=== PATIENT | female | born 1970 | race Caucasian/White ===

== ENCOUNTER 2019-05-09 13:30 | Inpatient (IN) | payer MEDICAID ==
[~2019-05-09] VITALS: Ht 160 cm; Wt 63.5 kg
[2019-05-09 14:27] LABS: BASOPHILS % 0.5 % (0.0-2.0); HEMOGLOBIN. 13.8 g/dL (12.0-16.0); MEAN CORPUSCULAR HEMOGLOBIN 29.7 pg (28.0-32.0); MEAN CORPUSCULAR VOLUME 88.1 fL (81.0-99.0); MEAN PLATELET VOLUME 8.8 fl (7.4-10.4); MONOCYTES % 8.4 % (2.0-8.0); NEUTROPHILS % 67.1 % (40.0-76.0); PLATELET 246 x1000/uL (130-400); RED BLOOD CELL COUNT 4.65 mill/uL (4.2-5.4); RED CELL DISTRIBUTION WIDTH 13.5 % (11.6-14.6)
[2019-05-09 14:31] LABS: BG CARBOXYHEMOGLOBIN 0.4 % (0.5-1.5); BG DEOXYHEMOGLOBIN 4.8 % (0.0-5.0); BG FRACTION INSPIRED OXYGEN 21; BG HCO3 ACT 23.8 mmol/L (22.0-26.0); BG METHEMOGLOBIN 0.1 % (0.0-1.5); BG OXYGEN SATURATION 95.2 % (92.0-98.5); BG OXYHEMOGLOBIN 94.7 % (94.0-97.0); BG PCO2 36.5 mmHg (35.0-45.0); BG PH 7.433 (7.350-7.450); BG SAMPLE SITE RIGHT BRACHIAL; BG VENT MODE ROOM AIR
[2019-05-09 14:34] LABS: CHLORIDE 107 mEq/L (98-107)
[2019-05-09 14:35] LABS: HCG SCREEN NEGATIVE
[2019-05-09 14:38] LABS: ETHANOL BLOOD < 10 mg/dL
[2019-05-09 15:25] LABS: CLARITY URINE CLEAR (CLEAR); COLOR URINE YELLOW (YELLOW); KETONES URINE NEGATIVE (NEGATIVE); LEUKOCYTE ESTERASE URINE TRACE (NEGATIVE); NITRITE URINE NEGATIVE (NEGATIVE); OCCULT BLOOD URINE NEGATIVE (NEGATIVE); PH URINE 8.5 (4.5-8.0); PROTEIN URINE NEGATIVE (NEGATIVE); SPECIFIC GRAVITY URINE 1.006 (1.005-1.030); UROBILINOGEN URINE 0.2 E.U./dL (0.2-1.0)
[2019-05-09 15:42] LABS: *AMPHETAMINES SCREEN URINE NEGATIVE (NEGATIVE); *BARBITURATES SCREEN URINE NEGATIVE (NEGATIVE); *BENZODIAZEPINES SCREEN URINE NEGATIVE (NEGATIVE); *COCAINE SCREEN URINE NEGATIVE (NEGATIVE); METHADONE URINE SCREEN NEGATIVE (NEGATIVE); OPIATES URINE SCREEN NEGATIVE (NEGATIVE); PHENCYCLIDINE URINE SCREEN NEGATIVE (NEGATIVE)
[2019-05-09 15:43] LABS: CANNABINOID URINE SCREEN NEGATIVE (NEGATIVE)
[2019-05-09] MEDS ORDERED: LORAZEPAM 0.5MG TABLET PO ONE (17:45)
[2019-05-09] MEDS ORDERED: ACETAMINOPHEN 325MG TABLET PO PRN (18:45)
[2019-05-09] MEDS ORDERED: DOCUSATE SODIUM 100MG CAPSULE PO PRN (18:45)
[2019-05-09] MEDS ORDERED: GUAIFENESIN 200MG/10ML SUGAR FREE UDC PO PRN (18:45)
[2019-05-09] MEDS ORDERED: DIPHENHYDRAMINE 50MG/ML VIAL IV PRN (18:45)
[2019-05-09] MEDS ORDERED: ONDANSETRON HCL 4MG/2ML INJ IV PRN (18:45)
[2019-05-09] MEDS ORDERED: CLONIDINE 0.1MG TABLET PO PRN (18:45)
[2019-05-09] MEDS ORDERED: MAGNESIUM/ALUMINUM HYDROXIDE/SIMETHICONE 30ML UDC PO PRN (18:45)
[2019-05-09] MEDS ORDERED: HYDROCODONE/ACETAMINOPHEN 5/325MG TABLET PO PRN (18:45)
[2019-05-09 19:02] LABS: PHOSPHORUS 2.4 mg/dL (2.5-4.9)
[2019-05-09] MEDS ORDERED: IOHEXOL-350 100 ML BOTTLE ONE (20:44)
[2019-05-09 22:20] VITALS: BP 107/68
[2019-05-10] VITALS: BP 120/70
[2019-05-10 04:00] VITALS: BP 102/57
[2019-05-10 06:54] LABS: CHLORIDE 112 mEq/L (98-107)
[2019-05-10 07:14] LABS: LDL CHOLESTEROL 63 mg/dL (5-100)
[2019-05-10 07:16] LABS: BASOPHILS % 0.5 % (0.0-2.0); EOSINOPHILS % 1.4 % (0.0-5.0); HEMATOCRIT. 39.5 % (36.0-48.0); HEMOGLOBIN. 13.4 g/dL (12.0-16.0); LYMPHOCYTES % 27.8 % (20.0-50.0); MEAN CORPUSCULAR HEMOGLOBIN 29.9 pg (28.0-32.0); MEAN CORPUSCULAR VOLUME 88.4 fL (81.0-99.0); MEAN PLATELET VOLUME 9.3 fl (7.4-10.4); MONOCYTES % 9.1 % (2.0-8.0); NEUTROPHILS % 61.2 % (40.0-76.0); PLATELET 221 x1000/uL (130-400); RED BLOOD CELL COUNT 4.48 mill/uL (4.2-5.4); RED CELL DISTRIBUTION WIDTH 13.3 % (11.6-14.6)
[2019-05-10 07:19] LABS: HDL CHOLESTEROL 50 mg/dL (40-59)
[2019-05-10 08:00] VITALS: BP 103/63
[2019-05-10 10:26] LABS: T4 FREE 0.89 ng/dL (0.76-1.46)
[2019-05-10 10:51] LABS: FOLIC ACID (FOLATE) SERUM >20 ng/mL ng/mL (>5.38)
[2019-05-10 11:03] LABS: VITAMIN B12 SERUM 987 pg/mL (211-911)
[2019-05-10 16:04] VITALS: BP 100/51
[2019-05-10 16:46] VITALS: BP 100/51
== END 2019-05-10 17:46 | disposition home or self-care (01) | DRG 58 ==
LOC: ER 13:30 → 8WST 17:42 → ENRESERV 20:06 → CANRESERV 20:06 → ENRESERV 20:13
PROVIDERS: ADMIT Internal Medicine; ATTEND Internal Medicine
DX: R20.2 Paresthesia of skin (principal); G83.89 Other specified paralytic syndromes; R53.1 Weakness
CPT/HCPCS: 36415; 36600; 70496; 70498; 70551; 71045; 72141; 72146; 72148; 80061; 80305; 80320; 81003; 82375; 82550; 82607; 82746; 82805; 83036; 83735; 84100; 84439; 84443; 84481; 84703; 93005; 99285; Q9967; G0480